=== PATIENT | male | born 1980 | race Caucasian/White ===

== ENCOUNTER 2017-10-04 18:21 | Inpatient (IN) | payer BC ==
[2017-10-04] MEDS ORDERED: Sodium Chloride 0.9% 1,000 ML IV SCH ×2 (19:30→22:30)
--- NOTE | 2017-10-04 19:30 | EDM.PDOC ---
ED HPI GENERAL MEDICAL PROBLEM - General Chief Complaint: Fever Stated Complaint: FEVER POST SURGERY Time Seen by Provider: 10/04/17 18:58 Source of Information: Reports: Patient History Limitations: Reports: No Limitations - History of Present Illness INITIAL COMMENTS - FREE TEXT/NARRATIVE: This is a 37-year-old male. Yesterday he had an appendectomy at the [facility] by Dr. Kang. Apparently the procedure went without a problem and he was sent home. He noted around 3 or 4 PM today that he began to have some chills and was noted to have fever up to 104. [facility] and they told him to come to the ER for evaluation. He tells me the appendix was not ruptured when they took it out. He did also have some chills last night after the procedure when he was home. He has been drinking fluids but has not had a bowel movement yet he's had no nausea and vomiting and he denies any abdominal pain. He does have a sore throat and he does have a dry hacking cough. He denies any skin lesions or any other areas that might cause infection. - Related Data Allergies Allergy/AdvReac Type Severity Reaction Status Date / Time No Known Allergies Allergy Verified 10/04/17 18:36 Home Meds: Home Meds Acetaminophen/oxyCODONE [Percocet 325-5 MG] 1 each PO Q4HR PRN 10/04/17 [History ] Amoxicillin/Clavulanate K [Augmentin 875-125 MG] 1 tab PO BID 10/04/17 [History] Past Medical History - Past Surgical History GI Surgical History: Reports: Appendectomy Social & Family History - Tobacco Use Smoking Status *Q: Never Smoker - Caffeine Use Caffeine Use: Reports: Soda - Recreational Drug Use Recreational Drug Use: No ED ROS GENERAL - Review of Systems Review Of Systems: See Below Constitutional: Reports: Fever, Chills, Malaise HEENT: Reports: Throat Pain. Denies: Rhinitis, Sinus Problem Respiratory: Reports: Cough. Denies: Shortness of Breath, Wheezing Cardiovascular: Denies: Chest Pain Endocrine: Reports: No Symptoms GI/Abdominal: Reports: Other (He has not had a bowel movement since the procedure). Denies: Abdominal Pain, Diarrhea, Nausea, Vomiting : Reports: No Symptoms Musculoskeletal: Reports: No Symptoms Skin: Reports: No Symptoms Neurological: Reports: No Symptoms Psychiatric: Reports: No Symptoms Hematologic/Lymphatic: Reports: No Symptoms ED EXAM, SEPSIS - Physical Exam Exam: See Below Exam Limited By: No Limitations General Appearance: Alert, WD/WN, No Apparent Distress Eye Exam: Bilateral Eye: Normal Inspection Ears: Normal External Exam, Normal Canal, Normal TMs Nose: Normal Inspection Throat/Mouth: Normal Inspection, Normal Lips, Normal Voice, No Airway Compromise , Other (Minimally inflamed oropharynx, he has dry mucous membranes noted) Head: Normocephalic Neck: Supple, Other (No nuchal rigidity) Respiratory/Chest: No Respiratory Distress, Lungs Clear, Normal Breath Sounds, Other (Lungs appear to be clear and the posterior mcallister and the bases though there are some decreased breath sounds in the bases noted bilaterally) Cardiovascular: Regular Rate, Rhythm, No Murmur GI/Abdominal Exam: Non-Tender, Distended, Other (There are no bowel sounds noted on auscultation of all 4 quadrants. He does not have any significant tenderness on palpation of his 4 quadrants, some mild soreness in McBurney's point in the right lower quadrant but no rebound is noted). No: Soft Back: Full Range of Motion Extremities: Normal Inspection, Normal Range of Motion Neurological: Alert, Oriented Psychiatric: Normal Affect, Normal Mood Skin: Warm, Dry Course - Vital Signs Last Recorded V/S: Last Vital Signs Temp 103.2 F H 10/04/17 18:38 Pulse 115 H 10/04/17 18:38 Resp 18 10/04/17 18:38 BP 126/72 10/04/17 18:38 Pulse Ox 90 L 10/04/17 18:38 - Orders/Labs/Meds Orders: Active Orders 24 hr Category Date Time Status Abdomen Pelvis w Cont [CT] Stat Exams 10/04/17 19:14 Taken Chest 2V [CR] Stat Exams 10/04/17 19:12 Taken CULTURE BLOOD [BC] Stat Lab 10/04/17 19:05 Received CULTURE BLOOD [BC] Stat Lab 10/04/17 19:17 Received CULTURE STREP A CONFIRMATION [RM] Stat Lab 10/04/17 19:38 Results Rapid Strep w/culture conf [STREP SCRN A RAPID W CULT Lab 10/04/17 19:38 Results CONF] [RM] Stat Sodium Chloride 0.9% [Normal Saline] 1,000 ml Med 10/04/17 19:30 Active IV ASDIRECTED cefTRIAXone [Rocephin] 1 gm Med 10/04/17 21:36 Active Sodium Chloride 0.9% [Normal Saline] 100 ml IV ONETIME Blood Culture x2 Reflex Set [OM.PC] Stat Oth 10/04/17 19:13 Ordered Medication Orders Sodium Chloride (Normal Saline) 1,000 mls @ 1,000 mls/hr IV ASDIRECTED GONSALO Last Admin: 10/04/17 19:37 Dose: 1,000 mls/hr Ceftriaxone Sodium 1 gm/ (Sodium Chloride) 100 mls @ 200 mls/hr IV ONETIME ONE Stop: 10/04/17 22:05 Last Admin: 10/04/17 21:44 Dose: 200 mls/hr Labs: Laboratory Tests 10/04/17 10/04/17 10/04/17 Range/Units 19:05 19:05 19:05 WBC 11.10 H (4.23-9.07) K/mm3 RBC 4.93 (4.63-6.08) M/mm3 Hgb 14.5 (13.7-17.5) gm/L Hct 42.0 (40.1-51.0) % MCV 85.2 (79.0-92.2) fl MCH 29.4 (25.7-32.2) pg MCHC 34.5 (32.2-35.5) g/dl RDW Std Deviation 38.6 (35.1-43.9) fL Plt Count 173 (163-337) K/mm3 MPV 11.6 (9.4-12.3) fl Neut % (Auto) 72.1 H (34.0-67.9) % Lymph % (Auto) 16.0 L (21.8-53.1) % [place] % (Auto) 10.8 (5.3-12.2) % Eos % (Auto) 0.5 L (0.8-7.0) Baso % (Auto) 0.3 (0.1-1.2) % Neut # (Auto) 8.00 H (1.78-5.38) K/mm3 Lymph # (Auto) 1.78 (1.32-3.57) K/mm3 [place] # (Auto) 1.20 H (0.30-0.82) K/mm3 Eos # (Auto) 0.06 (0.04-0.54) K/mm3 Baso # (Auto) 0.03 (0.01-0.08) K/mm3 Sodium 139 (136-145) mEq/L Potassium 3.6 (3.5-5.1) mEq/L Chloride 103 (98-107) mEq/L Carbon Dioxide 25 (21-32) mEq/L Anion Gap 14.6 (5-15) BUN 13 (7-18) mg/dL Creatinine 1.4 H (0.7-1.3) mg/dL Est Cr Clr Drug Dosing 68.85 mL/min Estimated GFR (MDRD) 58 (>60) mL/min BUN/Creatinine Ratio 9.3 L (14-18) Glucose 99 (74-106) mg/dL Lactic Acid 1.0 (0.4-2.0) mmol/L Calcium 8.4 L (8.5-10.1) mg/dL Total Bilirubin 0.8 (0.2-1.0) mg/dL AST 25 (15-37) U/L ALT 55 (16-63) U/L Alkaline Phosphatase 49 (46-116) U/L C-Reactive Protein 7.0 H* (<1.0) mg/dL Total Protein 7.1 (6.4-8.2) g/dl Albumin 3.5 (3.4-5.0) g/dl Globulin 3.6 gm/dL Albumin/Globulin Ratio 1.0 (1-2) Urine Color (Yellow) Urine Appearance (Clear) Urine pH (5.0-8.0) Ur Specific [place] (1.005-1.030) Urine Protein (Negative) Urine Glucose (UA) (Negative) Urine Ketones (Negative) Urine Occult Blood (Negative) Urine Nitrite (Negative) Urine Bilirubin (Negative) Urine Urobilinogen (0.2-1.0) Ur Leukocyte Esterase (Negative) Urine RBC (0-5) /hpf Urine WBC (0-5) /hpf Ur Epithelial Cells (0-5) /hpf Urine Bacteria (FEW) /hpf Urine Mucus (FEW) /hpf 10/04/17 Range/Units 19:34 WBC (4.23-9.07) K/mm3 RBC (4.63-6.08) M/mm3 Hgb (13.7-17.5) gm/L Hct (40.1-51.0) % MCV (79.0-92.2) fl MCH (25.7-32.2) pg MCHC (32.2-35.5) g/dl RDW Std Deviation (35.1-43.9) fL Plt Count (163-337) K/mm3 MPV (9.4-12.3) fl Neut % (Auto) (34.0-67.9) % Lymph % (Auto) (21.8-53.1) % [place] % (Auto) (5.3-12.2) % Eos % (Auto) (0.8-7.0) Baso % (Auto) (0.1-1.2) % Neut # (Auto) (1.78-5.38) K/mm3 Lymph # (Auto) (1.32-3.57) K/mm3 [place] # (Auto) (0.30-0.82) K/mm3 Eos # (Auto) (0.04-0.54) K/mm3 Baso # (Auto) (0.01-0.08) K/mm3 Sodium (136-145) mEq/L Potassium (3.5-5.1) mEq/L Chloride (98-107) mEq/L Carbon Dioxide (21-32) mEq/L Anion Gap (5-15) BUN (7-18) mg/dL Creatinine (0.7-1.3) mg/dL Est Cr Clr Drug Dosing mL/min Estimated GFR (MDRD) (>60) mL/min BUN/Creatinine Ratio (14-18) Glucose (74-106) mg/dL Lactic Acid (0.4-2.0) mmol/L Calcium (8.5-10.1) mg/dL Total Bilirubin (0.2-1.0) mg/dL AST (15-37) U/L ALT (16-63) U/L Alkaline Phosphatase (46-116) U/L C-Reactive Protein (<1.0) mg/dL Total Protein (6.4-8.2) g/dl Albumin (3.4-5.0) g/dl Globulin gm/dL Albumin/Globulin Ratio (1-2) Urine Color Yellow (Yellow) Urine Appearance Clear (Clear) Urine pH 6.0 (5.0-8.0) Ur Specific [place] 1.020 (1.005-1.030) Urine Protein Negative (Negative) Urine Glucose (UA) Negative (Negative) Urine Ketones Negative (Negative) Urine Occult Blood Negative (Negative) Urine Nitrite Negative (Negative) Urine Bilirubin Negative (Negative) Urine Urobilinogen 0.2 (0.2-1.0) Ur Leukocyte Esterase Negative (Negative) Urine RBC 0-5 (0-5) /hpf Urine WBC 0-5 (0-5) /hpf Ur Epithelial Cells 0-5 (0-5) /hpf Urine Bacteria Rare (FEW) /hpf Urine Mucus Not seen (FEW) /hpf Meds: Medications Generic Name Dose Route Start Last Admin Trade Name Freq PRN Reason Stop Dose Admin Sodium Chloride 1,000 mls @ 1,000 mls/hr 10/04/17 19:30 10/04/17 19:37 Normal Saline IV 1,000 mls/hr ASDIRECTED GONSALO Administration Ceftriaxone Sodium 1 gm/ 100 mls @ 200 mls/hr 10/04/17 21:36 10/04/17 21:44 Sodium Chloride IV 10/04/17 22:05 200 mls/hr ONETIME ONE Administration Discontinued Medications Generic Name Dose Route Start Last Admin Trade Name Freq PRN Reason Stop Dose Admin Iopamidol 125 ml 10/04/17 19:50 10/04/17 20:04 Isovue-300 (61%) IVPUSH 10/04/17 19:51 125 ml ONETIME ONE Administration Sodium Chloride 10 ml 10/04/17 19:50 10/04/17 20:05 Saline Flush FLUSH 10/04/17 19:51 10 ml ONETIME ONE Administration - Radiology Interpretation Free Text/Narrative:: CT scan of the abdomen and pelvis with intravenous contrast shows a consolidated right lower lobe pneumonia and a small amount in the left lower lobe as well with a right pleural effusion this very small. - Re-Assessments/Exams Free Text/Narrative Re-Assessment/Exam: 10/04/17 22:[address] Knowles and he is willing to follow the patient for postoperative care for his percutaneous appendectomy. 10/04/17 22:[address] Bermudez and she will put the patient in the hospital for further evaluation and treatment. Departure - Departure Time of Disposition: 22:07 Disposition: Admitted As Inpatient 68 Condition: Fair Clinical Impression: Status post appendectomy Pneumonia Qualifiers: Pneumonia type: due to unspecified organism Laterality: bilateral Lung location : lower lobe of lung Qualified Code(s): J18.9 - Pneumonia, unspecified organism - Discharge Information Additional Instructions: Dr. Bermudez will place the patient in the hospital for further evaluation and treatment. ED Communication - ED Communication Date/Time Date: 10/04/17 Time Called: 22:19 - Discussed Case With (1) Discussed Case With (1): Admitting Provider Person/s Notified (1): Ina Bermudez (She will admit the patient) - My Orders Last 24 Hours: My Active Orders 10/04/17 19:05 CULTURE BLOOD [BC] Stat 10/04/17 19:12 Chest 2V [CR] Stat 10/04/17 19:13 Blood Culture x2 Reflex Set [OM.PC] Stat 10/04/17 19:14 Abdomen Pelvis w Cont [CT] Stat 10/04/17 19:17 CULTURE BLOOD [BC] Stat 10/04/17 19:30 Sodium Chloride 0.9% [Normal Saline] 1,000 ml IV ASDIRECTED 10/04/17 19:38 CULTURE STREP A CONFIRMATION [RM] Stat Rapid Strep w/culture conf [STREP SCRN A RAPID W CULT CONF] [RM] Stat 10/04/17 21:36 cefTRIAXone [Rocephin] 1 gm Sodium Chloride 0.9% [Normal Saline] 100 ml IV ONETIME - Assessment/Plan Last 24 Hours: My Active Orders 10/04/17 19:05 CULTURE BLOOD [BC] Stat 10/04/17 19:12 Chest 2V [CR] Stat 10/04/17 19:13 Blood Culture x2 Reflex Set [OM.PC] Stat 10/04/17 19:14 Abdomen Pelvis w Cont [CT] Stat 10/04/17 19:17 CULTURE BLOOD [BC] Stat 10/04/17 19:30 Sodium Chloride 0.9% [Normal Saline] 1,000 ml IV ASDIRECTED 10/04/17 19:38 CULTURE STREP A CONFIRMATION [RM] Stat Rapid Strep w/culture conf [STREP SCRN A RAPID W CULT CONF] [RM] Stat 10/04/17 21:36 cefTRIAXone [Rocephin] 1 gm Sodium Chloride 0.9% [Normal Saline] 100 ml IV ONETIME
[2017-10-04] MEDS ORDERED: Iopamidol 612 MG/ML 150 ML Bottle IVPUSH ONE (19:50)
[2017-10-04] MEDS ORDERED: Sodium Chloride 0.9% 10 ML Syringe FLUSH ONE (19:50)
[2017-10-04] MEDS ORDERED: cefTRIAXone 1 GM in Sodium Chloride 0.9% 100 ML IV ONE (21:36)
[2017-10-04] MEDS ORDERED: Levofloxacin/Dextrose 5%-Water 750 MG in Premix Bag 1 BAG IV ONE (22:13)
[2017-10-04] MEDS ORDERED: Acetaminophen/HYDROcodone 325-5 MG Tab PO PRN (23:37)
[2017-10-04] MEDS ORDERED: Morphine 2 MG/ML Syringe IVPUSH PRN (23:39)
[2017-10-04] MEDS ORDERED: Ondansetron 4 MG/2 ML SDV IVPUSH PRN (23:40)
[2017-10-04] MEDS ORDERED: Temazepam 15 MG Cap PO PRN (23:45)
[2017-10-05] MEDS ORDERED: Sodium Chloride 0.9% 500 ML IV ONE (00:01)
[2017-10-05] MEDS: Sodium Chloride 0.9% 1,000 ML IV SCH ×4 (02:08→23:46)
--- NOTE | 2017-10-05 09:02 | PCM.CONS ---
H&P History of Present Illness - General Date of Service: 10/05/17 Admit Problem/Dx: Admission Diagnosis/Problem Admission Diagnosis/Problem Pneumonia Source of Information: Patient - History of Present Illness Initial Comments - Free Text/Narative: 37-year-old male is 2 days status post a laparoscopic appendectomy for acute appendicitis. He was discharged after satisfying discharge criteria only to become short of breath and experiencing severe dyspnea on exertion. This was associated with a temperature 103. Out of concern he presented to the emergency room and was evaluated by staff. A Chest x-ray was remarkable for a right-sided pneumonia. His abdominal CT was remarkable for postoperative changes. He feels much better from the laparoscopic appendectomy noting only minimal incisional discomfort but no abdominal pain specifically being able to distinguish between his appendicitis discomfort and the surgical discomfort stating that the latter is much much better. His preop nausea and emesis have resolved. He has passed a lot of gas but has not had a bowel movement. This morning he has mild shortness of breath. Overnight his temperature has normalized with current management and his white count is slightly above 10, 000. I was asked to see him in consultation. - Related Data Allergies/Adverse Reactions: Allergies Allergy/AdvReac Type Severity Reaction Status Date / Time No Known Allergies Allergy Verified 10/05/17 00:10 Home Medications: Home Meds Acetaminophen/oxyCODONE [Percocet 325-5 MG] 1 each PO Q4HR PRN 10/04/17 [History ] Amoxicillin/Clavulanate K [Augmentin 875-125 MG] 1 tab PO BID 10/04/17 [History] Past Medical History - Past Surgical History GI Surgical History: Reports: Appendectomy Other GI Surgeries/Procedures: 10/02/17 lap appy Social & Family History - Family History Family Medical History: Noncontributory - Tobacco Use Smoking Status *Q: Never Smoker Second Hand Smoke Exposure: No - Caffeine Use Caffeine Use: Reports: Soda Other Caffeine Use: 1-2 can [place] dew per day - Recreational Drug Use Recreational Drug Use: No H&P Review of Systems - Review of Systems: Review Of Systems: ROS reveals no pertinent complaints other than HPI. Exam - Exam Exam: See Below - Vital Signs Vital Signs: Last Vital Signs Temp 36.7 C 10/05/17 08:21 Pulse 75 10/05/17 08:21 Resp 16 10/05/17 08:21 BP 128/75 10/05/17 08:21 Pulse Ox 95 10/05/17 08:21 Weight: 103.328 kg - Exam General: Alert, Oriented, Cooperative, Other (Obese) HEENT: EOMI, Hearing Intact Neck: Supple, Trachea Midline Lungs: Decreased Breath Sounds (In the right chest and right base) Cardiovascular: Regular Rate, Regular Rhythm, Normal S1, Normal S2 GI/Abdominal Exam: Soft, Non-Tender (Male) Exam: Deferred Rectal (Males) Exam: Deferred Back Exam: Full Range of Motion Extremities: Normal Inspection, Normal Range of Motion Skin: Warm, Dry, Intact Psychiatric: Alert, Normal Affect, Normal Mood - Patient Data Lab Results Last 24 hrs: Laboratory Results - last 24 hr 10/05/17 10/05/17 10/05/17 Range/Units 05:37 05:37 05:37 WBC 10.04 H (4.23-9.07) K/mm3 RBC 4.84 (4.63-6.08) M/mm3 Hgb 14.2 (13.7-17.5) gm/L Hct 41.2 (40.1-51.0) % MCV 85.1 (79.0-92.2) fl MCH 29.3 (25.7-32.2) pg MCHC 34.5 (32.2-35.5) g/dl RDW Std Deviation 38.4 (35.1-43.9) fL Plt Count 160 L (163-337) K/mm3 MPV 11.6 (9.4-12.3) fl Neut % (Auto) 62.3 (34.0-67.9) % Lymph % (Auto) 24.4 (21.8-53.1) % [place] % (Auto) 11.7 (5.3-12.2) % Eos % (Auto) 1.0 (0.8-7.0) Baso % (Auto) 0.2 (0.1-1.2) % Neut # (Auto) 6.26 H (1.78-5.38) K/mm3 Lymph # (Auto) 2.45 (1.32-3.57) K/mm3 [place] # (Auto) 1.17 H (0.30-0.82) K/mm3 Eos # (Auto) 0.10 (0.04-0.54) K/mm3 Baso # (Auto) 0.02 (0.01-0.08) K/mm3 Sodium 140 (136-145) mEq/L Potassium 3.7 (3.5-5.1) mEq/L Chloride 106 (98-107) mEq/L Carbon Dioxide 24 (21-32) mEq/L Anion Gap 13.7 (5-15) BUN 13 (7-18) mg/dL Creatinine 1.2 (0.7-1.3) mg/dL Est Cr Clr Drug Dosing 80.33 mL/min Estimated GFR (MDRD) > 60 (>60) mL/min BUN/Creatinine Ratio 10.8 L (14-18) Glucose 90 (74-106) mg/dL Lactic Acid 0.8 (0.4-2.0) mmol/L Calcium 8.2 L (8.5-10.1) mg/dL Magnesium 2.1 (1.8-2.4) mg/dl C-Reactive Protein 8.4 H* (<1.0) mg/dL Result Diagrams: 10/05/17 05:37 10/05/17 05:37 Nazario Results Last 24 hrs: Microbiology 10/04/17 23:14 Influenza Type A Antigen Screen - Final Nasopharyngeal Swab - Nare, Unspecified NEGATIVE INFLUENZA A VIRUS AG Influenza Type B Antigen Screen - Final NEGATIVE INFLUENZA B VIRUS AG Consult PN Assessment/Plan (1) Pneumonia SNOMED Code(s): 436133571 Code(s): J18.9 - PNEUMONIA, UNSPECIFIED ORGANISM Current Visit: Yes Qualifiers: Pneumonia type: due to unspecified organism Laterality: bilateral Lung location: lower lobe of lung Qualified Code(s): J18.9 - Pneumonia, unspecified organism (2) Status post appendectomy SNOMED Code(s): 389418373, 220652623 Code(s): Z90.49 - ACQUIRED ABSENCE OF OTHER SPECIFIED PARTS OF DIGESTIVE TRACT Current Visit: Yes Problem List Initiated/Reviewed/Updated: Yes Plan: Imp: With no history of cigarette smoking and no history of pulmonary disease and given his obesity along with the nausea and multiple episodes of emesis that he had before his appendectomy I suspect that he aspirated at some point during the intubation, the surgical procedure, or extubation required for his appendectomy. This blossomed after discharge and manifested as shortness of breath, an elevation in temperature, and the radiographic findings. His abdomen is benign. His constipation is related to a mild postoperative large bowel ileus. Rec: Medical management of the pneumonia. Regular diet. Laxatives.
--- NOTE | 2017-10-05 09:19 | PCM.HP ---
H&P History of Present Illness - General Date of Service: 10/05/17 Source of Information: Provider History Limitations: Reports: No Limitations - History of Present Illness Initial Comments - Free Text/Narative: 37 year old male without significant PMH is s/p appendectomy, POD 1. He went home after the OP procedure and developed a fever with chills. He noted a sore throat post extubation. This was associated with a fever on the day that he was discharged. He notified the [facility] and was instructed to go to the ED in his home town. Thus he presented to [facility] ED, he has a RLL infiltarte. he will be admitted to [place] oc for aspiration PNA. A general surg consult has been ordered. Onset of Symptoms: Reports: Gradual Symptom Onset Date: 10/03/17 Duration of Symptoms: Reports: Hour(s):, Getting Worse Location: Reports: Chest, Generalized Severity: Moderate Improves with: Reports: Medication Worsens with: Reports: None Associated Symptoms: Reports: Chest Pain, cough w sputum, Fever/Chills, Loss of Appetite, Malaise, Nausea/Vomiting, Shortness of Breath, Weakness - Related Data Allergies/Adverse Reactions: Allergies Allergy/AdvReac Type Severity Reaction Status Date / Time No Known Allergies Allergy Verified 10/05/17 00:10 Home Medications: Home Meds Acetaminophen/oxyCODONE [Percocet 325-5 MG] 1 each PO Q4HR PRN 10/04/17 [History ] Amoxicillin/Clavulanate K [Augmentin 875-125 MG] 1 tab PO BID 10/04/17 [History] Past Medical History - Past Surgical History GI Surgical History: Reports: Appendectomy Other GI Surgeries/Procedures: 10/02/17 [facility] Social & Family History - Family History Family Medical History: Noncontributory - Tobacco Use Smoking Status *Q: Never Smoker Second Hand Smoke Exposure: No - Caffeine Use Caffeine Use: Reports: Soda Other Caffeine Use: 1-2 can moutain dew per day - Recreational Drug Use Recreational Drug Use: No H&P Review of Systems - Review of Systems: Review Of Systems: See Below General: Reports: Fever, Chills, Malaise, Weakness, Fatigue, Decreased Appetite HEENT: Reports: Sore Throat Pulmonary: Reports: Pleuritic Chest Pain Cardiovascular: Reports: No Symptoms Gastrointestinal: Reports: No Symptoms Genitourinary: Reports: No Symptoms Musculoskeletal: Reports: No Symptoms Skin: Reports: No Symptoms Psychiatric: Reports: No Symptoms Neurological: Reports: No Symptoms Hematologic/Lymphatic: Reports: No Symptoms Immunologic: Reports: No Symptoms Exam - Exam Exam: See Below - Vital Signs Vital Signs: Last Vital Signs Temp 36.7 C 10/05/17 08:21 Pulse 75 10/05/17 08:21 Resp 16 10/05/17 08:21 BP 128/75 10/05/17 08:21 Pulse Ox 95 10/05/17 08:21 Weight: 103.328 kg - Exam Quality Assessment: Supplemental Oxygen, DVT Prophylaxis General: Alert, Oriented, Cooperative HEENT: Conjunctiva Clear, Nares Patent, Normal Nasal Septum, Pupils Equal, Pupils Reactive, PERRLA Neck: Supple, Trachea Midline Lungs: Normal Respiratory Effort, Decreased Breath Sounds (R>L) Cardiovascular: Regular Rate, Regular Rhythm GI/Abdominal Exam: Non-Tender, No Distention, Guarding (no), Rigid (no), Rebound (no), Abnormal Bowel Sounds (Male) Exam: Deferred Rectal (Males) Exam: Deferred Back Exam: Normal Inspection Extremities: Normal Inspection Skin: Warm, Dry, Intact Neurological: Cranial Nerves Intact Neuro Extensive - Mental Status: Alert, Oriented x3, Normal Mood/Affect, Normal Cognition, Memory Intact - Patient Data Lab Results Last 24 hrs: Laboratory Results - last 24 hr 10/05/17 10/05/17 10/05/17 Range/Units 05:37 05:37 05:37 WBC 10.04 H (4.23-9.07) K/mm3 RBC 4.84 (4.63-6.08) M/mm3 Hgb 14.2 (13.7-17.5) gm/L Hct 41.2 (40.1-51.0) % MCV 85.1 (79.0-92.2) fl MCH 29.3 (25.7-32.2) pg MCHC 34.5 (32.2-35.5) g/dl RDW Std Deviation 38.4 (35.1-43.9) fL Plt Count 160 L (163-337) K/mm3 MPV 11.6 (9.4-12.3) fl Neut % (Auto) 62.3 (34.0-67.9) % Lymph % (Auto) 24.4 (21.8-53.1) % [place] % (Auto) 11.7 (5.3-12.2) % Eos % (Auto) 1.0 (0.8-7.0) Baso % (Auto) 0.2 (0.1-1.2) % Neut # (Auto) 6.26 H (1.78-5.38) K/mm3 Lymph # (Auto) 2.45 (1.32-3.57) K/mm3 [place] # (Auto) 1.17 H (0.30-0.82) K/mm3 Eos # (Auto) 0.10 (0.04-0.54) K/mm3 Baso # (Auto) 0.02 (0.01-0.08) K/mm3 Sodium 140 (136-145) mEq/L Potassium 3.7 (3.5-5.1) mEq/L Chloride 106 (98-107) mEq/L Carbon Dioxide 24 (21-32) mEq/L Anion Gap 13.7 (5-15) BUN 13 (7-18) mg/dL Creatinine 1.2 (0.7-1.3) mg/dL Est Cr Clr Drug Dosing 80.33 mL/min Estimated GFR (MDRD) > 60 (>60) mL/min BUN/Creatinine Ratio 10.8 L (14-18) Glucose 90 (74-106) mg/dL Lactic Acid 0.8 (0.4-2.0) mmol/L Calcium 8.2 L (8.5-10.1) mg/dL Magnesium 2.1 (1.8-2.4) mg/dl C-Reactive Protein 8.4 H* (<1.0) mg/dL Result Diagrams: 10/06/17 10:58 10/06/17 10:58 Nazario Results Last 24 hrs: Microbiology 10/04/17 23:14 Influenza Type A Antigen Screen - Final Nasopharyngeal Swab - Nare, Unspecified NEGATIVE INFLUENZA A VIRUS AG Influenza Type B Antigen Screen - Final NEGATIVE INFLUENZA B VIRUS AG *Q Meaningful Use (ADM) - VTE *Q VTE Criteria *Q: - Stroke *Q Stroke Criteria *Q: - AMI *Q AMI Criteria *Q: - Problem List (1) Obesity (BMI 30-39.9) SNOMED Code(s): 571946030 ICD Code: E66.9 - OBESITY, UNSPECIFIED Status: Acute Current Visit: Yes (2) Pneumonia SNOMED Code(s): 908944173 ICD Code: J18.9 - PNEUMONIA, UNSPECIFIED ORGANISM Status: Acute Current Visit: Yes Qualifiers: Pneumonia type: due to unspecified organism Laterality: bilateral Lung location: lower lobe of lung Qualified Code(s): J18.9 - Pneumonia, unspecified organism (3) Status post appendectomy SNOMED Code(s): 606809724, 210556841 ICD Code: Z90.49 - ACQUIRED ABSENCE OF OTHER SPECIFIED PARTS OF DIGESTIVE TRACT Status: Acute Current Visit: Yes Problem List Initiated/Reviewed/Updated: Yes Orders Last 24hrs: Active Orders 24 hr Category Date Time Status Patient Status [ADT] Routine ADT 10/04/17 23:30 Active Activity as Tolerated [RC] .Routine Care 10/05/17 01:08 Active Communication Order [RC] ROUTINE Care 10/04/17 23:42 Active IS (RT) [RT Incentive Spirometry] [RC] ASDIRECTED Care 10/05/17 09:09 Active Notify Provider Consults [RC] ASDIRECTED Care 10/04/17 23:27 Active Oxygen Therapy Adult [Oxygen Therapy] [RC] ASDIRECTED Care 10/05/17 01:00 Active Consult to Physician [CONS] Routine Cons 10/04/17 23:26 Active Clear Liquid Diet [DIET] Diet 10/05/17 Breakfast Active Chest 2V [CR] Routine Exams 10/04/17 23:34 Stop Req Chest 2V [CR] Routine Exams 10/05/17 08:00 Ordered Acetaminophen/HYDROcodone [[place] 325-5 MG] Med 10/04/17 23:37 Active 1 tab PO Q6H PRN Enoxaparin [Lovenox] Med 10/05/17 09:00 Pending 30 mg SUBCUT DAILY Morphine Med 10/04/17 23:39 Active 1 mg IVPUSH Q8H PRN Ondansetron [Zofran] Med 10/04/17 23:40 Active 4 mg IVPUSH Q8H PRN Sodium Chloride 0.9% [Normal Saline] 1,000 ml Med 10/05/17 00:30 Active IV ASDIRECTED Temazepam [Restoril] Med 10/04/17 23:45 Active 15 mg PO BEDTIME PRN Isolation [COMM] Routine Oth 10/04/17 23:25 Ordered Code Status [Resuscitation Status] Routine Resus Stat 10/05/17 00:26 Ordered Medication Orders Hydrocodone Bitart/Acetaminophen ([place] 325-5 Mg) 1 tab PO Q6H PRN PRN Reason: Pain Enoxaparin Sodium (Lovenox) 30 mg SUBCUT DAILY [facility] Sodium Chloride (Normal Saline) 1,000 mls @ 150 mls/hr IV ASDIRECTED [facility] Last Admin: 10/05/17 02:08 Dose: 150 mls/hr Morphine Sulfate (Morphine) 1 mg IVPUSH Q8H PRN PRN Reason: Pain Ondansetron HCl (Zofran) 4 mg IVPUSH Q8H PRN PRN Reason: Nausea Temazepam (Restoril) 15 mg PO BEDTIME PRN PRN Reason: Sleep Assessment/Plan Comment:: Impression: POD 1, s/p appendectomy Had been provided an Augmentin prescription Aspiration PNA, RLL infiltrate Plan: IV ATB IVF IV Antiemetic Gen surg consult Daily labs Home meds DVT/GI prophylaxis Consult PT/OT/CM
[2017-10-05] MEDS ORDERED: Piperacillin/Tazobactam 4.5 GM in Sodium Chloride 0.9% 100 ML IV ONE (09:30)
[2017-10-05] MEDS: Ketorolac 15 MG/ML SDV IVPUSH SCH ×2 (09:48→16:42)
--- NOTE | 2017-10-05 10:50 | CR ---
Chest: 2 views of the chest are obtained. Comparison: Prior chest x-ray 10/14/17. Heart size and mediastinum are normal. Parenchymal density is noted within the right upper lung presumably due to persisting pneumonia although continued follow-up is recommended. Slight areas of atelectasis are seen within both lungs. Bony structures are unremarkable for the patient's age. Impression: 1. Parenchymal density most likely due to pneumonia within the upper right lung. Continued follow-up is recommended to make sure this resolves as expected for pneumonia. 2. Mild scattered areas of atelectasis is seen. Diagnostic code #3
[2017-10-05] MEDS ORDERED: Sennosides 8.6 MG Tab PO SCH (11:30)
[2017-10-05] MEDS: Enoxaparin 40 MG/0.4 ML Syringe SUBCUT SCH (11:56)
[2017-10-05] MEDS: Piperacillin/Tazobactam 4.5 GM in Sodium Chloride 0.9% 100 ML IV SCH (16:47)
[2017-10-05] MEDS ORDERED: Bisacodyl 5 MG Tab PO PRN (19:15)
[2017-10-05] MEDS: Levofloxacin/Dextrose 5%-Water 750 MG in Premix Bag 1 BAG IV SCH (21:37)
[2017-10-06] MEDS ORDERED: Sodium Chloride 0.9% 100 ML ONE (01:31)
[2017-10-06] MEDS: Piperacillin/Tazobactam 4.5 GM in Sodium Chloride 0.9% 100 ML IV SCH ×3 (01:37→17:17)
[2017-10-06] MEDS: Ketorolac 15 MG/ML SDV IVPUSH SCH ×2 (01:39→08:42)
[2017-10-06] MEDS: Sodium Chloride 0.9% 1,000 ML IV SCH (06:37)
[2017-10-06] MEDS: Enoxaparin 40 MG/0.4 ML Syringe SUBCUT SCH (08:39)
--- NOTE | 2017-10-06 08:48 | PCM.CONSN ---
- General Info Date of Service: 10/06/17 Functional Status: Reports: Pain Controlled, Tolerating Diet, Ambulating, Urinating - Review of Systems Gastrointestinal: Reports: No Symptoms, Other (2 bowel movements with gas passage) - Patient Data Vitals - Most Recent: Last Vital Signs Temp 36.8 C 10/06/17 07:55 Pulse 57 L 10/06/17 07:55 Resp 16 10/06/17 07:55 BP 125/78 10/06/17 07:55 Pulse Ox 99 10/06/17 07:55 Weight - Most Recent: 103.963 kg I&O - Last 24 Hours: Intake & Output 10/05/17 10/06/17 10/06/17 22:59 06:59 14:59 Intake Total 2450 2748 Output Total 1520 1175 Balance 930 1573 Med Orders - Current: Current Medications Hydrocodone Bitart/Acetaminophen ([place] 325-5 Mg) 1 tab PO Q6H PRN PRN Reason: Pain Bisacodyl (Dulcolax) 5 mg PO BEDTIME PRN PRN Reason: Constipation Enoxaparin Sodium (Lovenox) 40 mg SUBCUT DAILY [facility] Last Admin: 10/06/17 08:39 Dose: 40 mg Sodium Chloride (Normal Saline) 1,000 mls @ 150 mls/hr IV ASDIRECTED [facility] Last Admin: 10/06/17 06:37 Dose: 150 mls/hr Levofloxacin/Dextrose 750 mg/ (Premix) 150 mls @ 100 mls/hr IV Q24H [facility] Last Admin: 10/05/17 21:37 Dose: 100 mls/hr Piperacillin Sod/Tazobactam (Sod 4.5 gm/ Sodium Chloride) 100 mls @ 25 mls/hr IV Q8H [facility] Last Admin: 10/06/17 08:42 Dose: 25 mls/hr Ketorolac Tromethamine (Toradol) 15 mg IVPUSH Q8H [facility] Stop: 10/06/17 09:31 Last Admin: 10/06/17 08:42 Dose: Not Given Morphine Sulfate (Morphine) 1 mg IVPUSH Q8H PRN PRN Reason: Pain Ondansetron HCl (Zofran) 4 mg IVPUSH Q8H PRN PRN Reason: Nausea Temazepam (Restoril) 15 mg PO BEDTIME PRN PRN Reason: Sleep Discontinued Medications Sodium Chloride (Normal Saline) 1,000 mls @ 1,000 mls/hr IV ASDIRECTED [facility] Last Admin: 10/04/17 19:37 Dose: 1,000 mls/hr Ceftriaxone Sodium 1 gm/ (Sodium Chloride) 100 mls @ 200 mls/hr IV ONETIME ONE Stop: 10/04/17 22:05 Last Admin: 10/04/17 21:44 Dose: 200 mls/hr Levofloxacin/Dextrose 750 mg/ (Premix) 150 mls @ 100 mls/hr IV ONETIME ONE Stop: 10/04/17 23:42 Last Admin: 10/04/17 22:27 Dose: 100 mls/hr Sodium Chloride (Normal Saline) 1,000 mls @ 500 mls/hr IV ASDIRECTED [facility] Last Admin: 10/04/17 22:26 Dose: 500 mls/hr Sodium Chloride (Normal Saline) 500 mls @ 999 mls/hr IV .BOLUS ONE Stop: 10/05/17 00:31 Last Admin: 10/04/17 23:30 Dose: 999 mls/hr Piperacillin Sod/Tazobactam (Sod 4.5 gm/ Sodium Chloride) 100 mls @ 200 mls/hr IV ONETIME ONE Stop: 10/05/17 09:59 Last Admin: 10/05/17 09:51 Dose: 200 mls/hr Sodium Chloride (Normal Saline) Confirm Administered Dose 100 mls @ as directed .ROUTE .STK-MED ONE Stop: 10/06/17 01:32 Last Admin: 10/06/17 01:39 Dose: Not Given Iopamidol (Isovue-300 (61%)) 125 ml IVPUSH ONETIME ONE Stop: 10/04/17 19:51 Last Admin: 10/04/17 20:04 Dose: 125 ml Senna (Senna) 17.2 mg PO DAILY [facility] Last Admin: 10/05/17 11:58 Dose: 17.2 mg Sodium Chloride (Saline Flush) 10 ml FLUSH ONETIME ONE Stop: 10/04/17 19:51 Last Admin: 10/04/17 20:05 Dose: 10 ml Consult PN Assessment/Plan (1) Pneumonia SNOMED Code(s): 849811778 Code(s): J18.9 - PNEUMONIA, UNSPECIFIED ORGANISM Current Visit: Yes Qualifiers: Pneumonia type: due to unspecified organism Laterality: bilateral Lung location: lower lobe of lung Qualified Code(s): J18.9 - Pneumonia, unspecified organism (2) Status post appendectomy SNOMED Code(s): 560869638, 215703923 Code(s): Z90.49 - ACQUIRED ABSENCE OF OTHER SPECIFIED PARTS OF DIGESTIVE TRACT Current Visit: Yes Assessment:: imp: Constipation resolved. His abdomen is benign. Problem List Initiated/Reviewed/Updated: Yes Plan: Signing off. Patient can be discharged to follow-up with the operating surgeon post appendectomy.
--- NOTE | 2017-10-06 09:49 | PCM.PN ---
- General Info Date of Service: 10/06/17 Functional Status: Reports: Pain Controlled, Tolerating Diet, Ambulating, Urinating, Incentive Spirometry - Review of Systems General: Reports: No Symptoms HEENT: Reports: No Symptoms Pulmonary: Reports: No Symptoms Cardiovascular: Reports: No Symptoms Gastrointestinal: Reports: No Symptoms Genitourinary: Reports: No Symptoms Musculoskeletal: Reports: No Symptoms Skin: Reports: No Symptoms Neurological: Reports: No Symptoms Psychiatric: Reports: No Symptoms - Patient Data Vitals - Most Recent: Last Vital Signs Temp 36.8 C 10/06/17 07:55 Pulse 57 L 10/06/17 07:55 Resp 16 10/06/17 07:55 BP 125/78 10/06/17 07:55 Pulse Ox 99 10/06/17 07:55 Weight - Most Recent: 103.963 kg I&O - Last 24 Hours: Intake & Output 10/05/17 10/06/17 10/06/17 22:59 06:59 14:59 Intake Total 2450 2748 Output Total 1520 1175 Balance 930 1573 Med Orders - Current: Current Medications Hydrocodone Bitart/Acetaminophen ([place] 325-5 Mg) 1 tab PO Q6H PRN PRN Reason: Pain Bisacodyl (Dulcolax) 5 mg PO BEDTIME PRN PRN Reason: Constipation Enoxaparin Sodium (Lovenox) 40 mg SUBCUT DAILY [facility] Last Admin: 10/06/17 08:39 Dose: 40 mg Sodium Chloride (Normal Saline) 1,000 mls @ 150 mls/hr IV ASDIRECTED COUNT INCLUDES [facility] Last Admin: 10/06/17 06:37 Dose: 150 mls/hr Levofloxacin/Dextrose 750 mg/ (Premix) 150 mls @ 100 mls/hr IV Q24H [facility]CLUDES [facility] Last Admin: 10/05/17 21:37 Dose: 100 mls/hr Piperacillin Sod/Tazobactam (Sod 4.5 gm/ Sodium Chloride) 100 mls @ 25 mls/hr IV Q8H COUNT [facility]CLUDES [facility] Last Admin: 10/06/17 08:42 Dose: 25 mls/hr Morphine Sulfate (Morphine) 1 mg IVPUSH Q8H PRN PRN Reason: Pain Ondansetron HCl (Zofran) 4 mg IVPUSH Q8H PRN PRN Reason: Nausea Temazepam (Restoril) 15 mg PO BEDTIME PRN PRN Reason: Sleep Discontinued Medications Sodium Chloride (Normal Saline) 1,000 mls @ 1,000 mls/hr IV ASDIRECTED COUNT INCLUDES THE [facility] Last Admin: 10/04/17 19:37 Dose: 1,000 mls/hr Ceftriaxone Sodium 1 gm/ (Sodium Chloride) 100 mls @ 200 mls/hr IV ONETIME ONE Stop: 10/04/17 22:05 Last Admin: 10/04/17 21:44 Dose: 200 mls/hr Levofloxacin/Dextrose 750 mg/ (Premix) 150 mls @ 100 mls/hr IV ONETIME ONE Stop: 10/04/17 23:42 Last Admin: 10/04/17 22:27 Dose: 100 mls/hr Sodium Chloride (Normal Saline) 1,000 mls @ 500 mls/hr IV ASDIRECTED COUNT INCLUDES THE [facility] Last Admin: 10/04/17 22:26 Dose: 500 mls/hr Sodium Chloride (Normal Saline) 500 mls @ 999 mls/hr IV .BOLUS ONE Stop: 10/05/17 00:31 Last Admin: 10/04/17 23:30 Dose: 999 mls/hr Piperacillin Sod/Tazobactam (Sod 4.5 gm/ Sodium Chloride) 100 mls @ 200 mls/hr IV ONETIME ONE Stop: 10/05/17 09:59 Last Admin: 10/05/17 09:51 Dose: 200 mls/hr Sodium Chloride (Normal Saline) Confirm Administered Dose 100 mls @ as directed .ROUTE .STK-MED ONE Stop: 10/06/17 01:32 Last Admin: 10/06/17 01:39 Dose: Not Given Iopamidol (Isovue-300 (61%)) 125 ml IVPUSH ONETIME ONE Stop: 10/04/17 19:51 Last Admin: 10/04/17 20:04 Dose: 125 ml Ketorolac Tromethamine (Toradol) 15 mg IVPUSH Q8H COUNT INCLUDES THE [facility] Stop: 10/06/17 09:31 Last Admin: 10/06/17 08:42 Dose: Not Given Senna (Senna) 17.2 mg PO DAILY [facility]CLUD[facility] Last Admin: 10/05/17 11:58 Dose: 17.2 mg Sodium Chloride (Saline Flush) 10 ml FLUSH ONETIME ONE Stop: 10/04/17 19:51 Last Admin: 10/04/17 20:05 Dose: 10 ml - Exam Quality Assessment: Supplemental Oxygen, DVT Prophylaxis General: Alert, Oriented, Cooperative, No Acute Distress HEENT: Pupils Equal, Pupils Reactive, EOMI Neck: Trachea Midline, No JVD Lungs: Normal Respiratory Effort Cardiovascular: Regular Rate, Regular Rhythm GI/Abdominal Exam: Normal Bowel Sounds, Soft, Non-Tender, No Organomegaly, No Distention (Male) Exam: Deferred Back Exam: Normal Inspection Extremities: Normal Inspection, Normal Range of Motion, Non-Tender, No Pedal Edema Skin: Warm Neurological: No New Focal Deficit, Normal Gait, Normal Speech Psy/Mental Status: Alert, Normal Affect, Normal Mood - Problem List Review Problem List Initiated/Reviewed/Updated: Yes - My Orders Last 24 Hours: My Active Orders 10/05/17 09:09 IS (RT) [RT Incentive Spirometry] [RC] ASDIRECTED 10/05/17 10:30 Enoxaparin [Lovenox] 40 mg SUBCUT DAILY 10/05/17 17:30 Piperacillin/Tazobactam [Zosyn] 4.5 gm Sodium Chloride 0.9% [Normal Saline] 100 ml IV Q8H 10/05/17 19:15 Bisacodyl [Dulcolax] 5 mg PO BEDTIME PRN 10/05/17 21:00 Levofloxacin/Dextrose 5%-Water [Levaquin in D5W 750 MG/150 ML] 750 mg Premix Bag 1 bag IV Q24H 10/06/17 11:00 CBC WITH AUTO DIFF [HEME] Routine CMP [COMPREHENSIVE METABOLIC PN,CMP] [CHEM] Routine LACTIC ACID [CHEM] Routine LIPASE [CHEM] Routine MAGNESIUM [CHEM] Routine 10/06/17 Breakfast Regular Diet [DIET] 10/07/17 08:00 CXR [Chest 2V] [CR] Routine 10/07/17 11:00 CRP [C-REACTIVE PROTEIN] [CHEM] Routine - Plan Plan:: Impression: POD 2, s/p appendectomy Had been provided an Augmentin prescription Aspiration PNA, RLL infiltrate Plan: IV ATB: Levoquin/Zosyn IVF IV Antiemetic Gen surg consult Daily labs Home meds DVT/GI prophylaxis Consult PT/OT/CM
--- NOTE | 2017-10-06 17:47 | CT ---
CT abdomen and pelvis Technique: Multiple axial sections were obtained from above the dome of the diaphragm inferiorly through the pubic symphysis. Intravenous and oral contrast has been given. Delayed images were also obtained from the mid kidneys inferiorly through the pubic symphysis. Comparison: No prior abdominal imaging. Findings: Small right sided pleural effusion is noted. Increased density within the right lung base which may represent atelectasis as well as pneumonia. Fatty infiltration is noted within the liver. Spleen appears within normal limits. Adrenal glands show no nodule. Pancreas is within normal limits. Gallbladder contains no calcified gallstones. Kidneys show symmetric contrast enhancement. Delayed images show contrast excretion into nondilated ureters with contrast seen within the bladder. Aorta shows no aneurysmal dilatation. No retroperitoneal adenopathy or mesenteric abnormalities are seen. Small amount of soft tissue air and increased density is noted within the subcutaneous fat within the lower left anterior abdominal wall presumably from previous surgery. Small amount of soft tissue air is also noted near the umbilicus within the subcutaneous fat also felt compatible with previous surgery. Surgical material is seen off the inferior tip of the cecum compatible with previous appendectomy. No pelvic mass or adenopathy is seen. No fluid collections of abscess are seen. Bowel gas pattern appears normal. Bone window settings were reviewed which appear within normal limits for the patient's age. Impression: 1. Subcutaneous air within the anterior abdominal wall as noted above likely from prior surgery. 2. Small right sided pleural effusion. Parenchymal density within right lung base most likely due to atelectasis although difficult to exclude pneumonia. 3. Fatty infiltration within the liver. 4. No intra-abdominal or intrapelvic abscess is seen. Diagnostic code #3 Agree with preliminary report issued by [facility] ([facility] preliminary report dictated on 10/04/17, 10:01 PM Central Time)
--- NOTE | 2017-10-06 17:47 | CR ---
Chest: Two views of the chest were obtained. Comparison: No prior study. Increased density within the right upper lung is seen. Left lung is clear. Heart size and mediastinum are normal. Bony structures are unremarkable. Impression: 1. Increased density within the right upper lung most likely representing pneumonia. Diagnostic code #3
[2017-10-06] MEDS: Levofloxacin/Dextrose 5%-Water 750 MG in Premix Bag 1 BAG IV SCH (21:27)
[2017-10-07] MEDS: Piperacillin/Tazobactam 4.5 GM in Sodium Chloride 0.9% 100 ML IV SCH ×2 (02:15→08:30)
--- NOTE | 2017-10-07 06:52 | PCM.DCSUM1 ---
Discharge Summary - Hospital Course HPI Initial Comments: 37 year old male without significant PMH is s/p appendectomy, POD 1. He went home after the OP procedure and developed a fever with chills. He noted a sore throat post extubation. This was associated with a fever on the day that he was discharged. He notified the [facility] and was instructed to go to the ED in his home town. Thus he presented to [facility] ED, he has a RLL infiltarte. he will be admitted to DC oc for aspiration PNA. A general surg consult has been ordered. - Discharge Data Discharge Date: 10/07/17 (Admit Date: 10/04/17) Discharge Disposition: Home, Self-Care 01 Condition: Good - Discharge Diagnosis/Problem(s) (1) Pneumonia SNOMED Code(s): 052593097 ICD Code: J18.9 - PNEUMONIA, UNSPECIFIED ORGANISM Status: Acute Priority : High Current Visit: Yes Qualifiers: Pneumonia type: due to unspecified organism Laterality: right Lung location: upper lobe of lung Qualified Code(s): J18.1 - Lobar pneumonia, unspecified organism (2) Status post appendectomy SNOMED Code(s): 719460022, 910893621 ICD Code: Z90.49 - ACQUIRED ABSENCE OF OTHER SPECIFIED PARTS OF DIGESTIVE TRACT Status: Acute Priority: High Current Visit: Yes (3) Obesity (BMI 30-39.9) SNOMED Code(s): 048314523 ICD Code: E66.9 - OBESITY, UNSPECIFIED Status: Chronic Priority: Medium Current Visit: Yes - Patient Summary/Data Consults: Consultations 10/04/17 23:26 Consult to Physician [CONS] Routine Labs Pending at D/C: none Recommended Follow-up Testing/Procedures: Follow-up with PCP within 7-10 days of discharge. Follow-up with surgeon as scheduled. Hospital Course: Impression: POD 2, s/p appendectomy Had been provided an Augmentin prescription Aspiration PNA, RLL infiltrate Plan: IV ATB: Levoquin/Zosyn IVF IV Antiemetic Gen surg consult Daily labs Home meds DVT/GI prophylaxis Overall Deyvi responded very well to treatment. General surgery was consulted and signed off on the patient. His recommendations were to follow-up with surgeon who preformed the procedure at the prior scheduled appointment. IV zosyn was discontinued and he will be discharged home on oral Levaquin. His WBC and CRP have improved. Chest x-ray improved Her medically. He should follow-up with a PCP in 7-10 days post discharge. Nursing is scheduling pt. with Dr. Arita here at our clinic to establish care. - Patient Instructions Diet: Heart Healthy Diet Activity: As Tolerated Notify Provider of: Fever, Increased Pain, Nausea and/or Vomiting - Discharge Plan Prescriptions/Med Rec: Levofloxacin [Levaquin] 750 mg PO DAILY #11 tab Home Medications: Home Meds Acetaminophen/oxyCODONE [Percocet 325-5 MG] 1 each PO Q4HR PRN 10/04/17 [History ] Levofloxacin [Levaquin] 750 mg PO DAILY #11 tab 10/07/17 [Rx] - Discharge Summary/Plan Comment DC Time >30 min.: Yes (40 minutes ) - General Info Date of Service: 10/07/17 Admission Dx/Problem (Free Text: Admission Diagnosis/Problem Admission Diagnosis/Problem Pneumonia Functional Status: Reports: Pain Controlled, Tolerating Diet, Ambulating, Urinating, Incentive Spirometry. Denies: New Symptoms - Review of Systems General: Reports: No Symptoms HEENT: Reports: No Symptoms Pulmonary: Reports: No Symptoms Cardiovascular: Reports: No Symptoms Gastrointestinal: Reports: No Symptoms Genitourinary: Reports: No Symptoms Musculoskeletal: Reports: No Symptoms Skin: Reports: No Symptoms Neurological: Reports: No Symptoms Psychiatric: Reports: No Symptoms - Patient Data Vitals - Most Recent: Last Vital Signs Temp 97.9 F 10/07/17 02:22 Pulse 67 10/07/17 02:22 Resp 16 10/07/17 02:22 BP 121/76 10/07/17 02:22 Pulse Ox 99 10/07/17 02:22 Weight - Most Recent: 222 lb 9.6 oz I&O - Last 24 hours: Intake & Output 10/06/17 10/06/17 10/07/17 14:59 22:59 06:59 Intake Total 1464 350 Output Total 4050 1300 Balance -2586 -950 Lab Results - Last 24 hrs: Laboratory Results - last 24 hr 10/06/17 10/06/17 10/06/17 Range/Units 10:58 10:58 10:58 WBC 8.42 (4.23-9.07) K/mm3 RBC 5.08 (4.63-6.08) M/mm3 Hgb 14.8 (13.7-17.5) gm/L Hct 41.6 (40.1-51.0) % MCV 81.9 (79.0-92.2) fl MCH 29.1 (25.7-32.2) pg MCHC 35.6 H (32.2-35.5) g/dl RDW Std Deviation 36.7 (35.1-43.9) fL Plt Count 197 (163-337) K/mm3 MPV 11.6 (9.4-12.3) fl Neut % (Auto) 68.3 H (34.0-67.9) % Lymph % (Auto) 20.9 L (21.8-53.1) % [place] % (Auto) 8.0 (5.3-12.2) % Eos % (Auto) 1.9 (0.8-7.0) Baso % (Auto) 0.4 (0.1-1.2) % Neut # (Auto) 5.76 H (1.78-5.38) K/mm3 Lymph # (Auto) 1.76 (1.32-3.57) K/mm3 [place] # (Auto) 0.67 (0.30-0.82) K/mm3 Eos # (Auto) 0.16 (0.04-0.54) K/mm3 Baso # (Auto) 0.03 (0.01-0.08) K/mm3 Sodium 138 (136-145) mEq/L Potassium 3.8 (3.5-5.1) mEq/L Chloride 103 (98-107) mEq/L Carbon Dioxide 23 (21-32) mEq/L Anion Gap 15.8 H (5-15) BUN 12 (7-18) mg/dL Creatinine 1.2 (0.7-1.3) mg/dL Est Cr Clr Drug Dosing 80.33 mL/min Estimated GFR (MDRD) > 60 (>60) mL/min BUN/Creatinine Ratio 10.0 L (14-18) Glucose 89 (74-106) mg/dL Lactic Acid 1.1 (0.4-2.0) mmol/L Calcium 8.9 (8.5-10.1) mg/dL Magnesium 1.9 (1.8-2.4) mg/dl Total Bilirubin 1.1 H (0.2-1.0) mg/dL AST 23 (15-37) U/L ALT 50 (16-63) U/L Alkaline Phosphatase 51 (46-116) U/L Total Protein 7.4 (6.4-8.2) g/dl Albumin 3.5 (3.4-5.0) g/dl Globulin 3.9 gm/dL Albumin/Globulin Ratio 0.9 L (1-2) Lipase 72 L (73-393) U/L Med Orders - Current: Current Medications Hydrocodone Bitart/Acetaminophen ([place] 325-5 Mg) 1 tab PO Q6H PRN PRN Reason: Pain Bisacodyl (Dulcolax) 5 mg PO BEDTIME PRN PRN Reason: Constipation Enoxaparin Sodium (Lovenox) 40 mg SUBCUT DAILY [facility] Last Admin: 10/06/17 08:39 Dose: 40 mg Sodium Chloride (Normal Saline) 1,000 mls @ 150 mls/hr IV ASDIRECTED [facility] Last Admin: 10/06/17 06:37 Dose: 150 mls/hr Levofloxacin/Dextrose 750 mg/ (Premix) 150 mls @ 100 mls/hr IV Q24H [facility] Last Admin: 10/06/17 21:27 Dose: 100 mls/hr Piperacillin Sod/Tazobactam (Sod 4.5 gm/ Sodium Chloride) 100 mls @ 25 mls/hr IV Q8H [facility] Last Admin: 10/07/17 02:15 Dose: 25 mls/hr Morphine Sulfate (Morphine) 1 mg IVPUSH Q8H PRN PRN Reason: Pain Ondansetron HCl (Zofran) 4 mg IVPUSH Q8H PRN PRN Reason: Nausea Temazepam (Restoril) 15 mg PO BEDTIME PRN PRN Reason: Sleep Discontinued Medications Sodium Chloride (Normal Saline) 1,000 mls @ 1,000 mls/hr IV ASDIRECTED [facility] Last Admin: 10/04/17 19:37 Dose: 1,000 mls/hr Ceftriaxone Sodium 1 gm/ (Sodium Chloride) 100 mls @ 200 mls/hr IV ONETIME ONE Stop: 10/04/17 22:05 Last Admin: 10/04/17 21:44 Dose: 200 mls/hr Levofloxacin/Dextrose 750 mg/ (Premix) 150 mls @ 100 mls/hr IV ONETIME ONE Stop: 10/04/17 23:42 Last Admin: 10/04/17 22:27 Dose: 100 mls/hr Sodium Chloride (Normal Saline) 1,000 mls @ 500 mls/hr IV ASDIRECTED [facility] Last Admin: 10/04/17 22:26 Dose: 500 mls/hr Sodium Chloride (Normal Saline) 500 mls @ 999 mls/hr IV .BOLUS ONE Stop: 10/05/17 00:31 Last Admin: 10/04/17 23:30 Dose: 999 mls/hr Piperacillin Sod/Tazobactam (Sod 4.5 gm/ Sodium Chloride) 100 mls @ 200 mls/hr IV ONETIME ONE Stop: 10/05/17 09:59 Last Admin: 10/05/17 09:51 Dose: 200 mls/hr Sodium Chloride (Normal Saline) Confirm Administered Dose 100 mls @ as directed .ROUTE .STK-MED ONE Stop: 10/06/17 01:32 Last Admin: 10/06/17 01:39 Dose: Not Given Iopamidol (Isovue-300 (61%)) 125 ml IVPUSH ONETIME ONE Stop: 10/04/17 19:51 Last Admin: 10/04/17 20:04 Dose: 125 ml Ketorolac Tromethamine (Toradol) 15 mg IVPUSH Q8H [facility] Stop: 10/06/17 09:31 Last Admin: 10/06/17 08:42 Dose: Not Given Senna (Senna) 17.2 mg PO DAILY [facility] Last Admin: 10/05/17 11:58 Dose: 17.2 mg Sodium Chloride (Saline Flush) 10 ml FLUSH ONETIME ONE Stop: 10/04/17 19:51 Last Admin: 10/04/17 20:05 Dose: 10 ml - Exam Quality Assessment: Reports: DVT Prophylaxis General: Reports: Alert, Oriented, Cooperative, No Acute Distress HEENT: Reports: Pupils Equal, Pupils Reactive, EOMI, Mucous Membr. Moist/[place] Neck: Reports: Supple, Trachea Midline, No JVD Lungs: Reports: Clear to Auscultation, Normal Respiratory Effort Cardiovascular: Reports: Regular Rate, Regular Rhythm GI/Abdominal Exam: Normal Bowel Sounds, Soft, Non-Tender, No Organomegaly, No Distention, No Abnormal Bruit, No Mass, Pelvis Stable (Male) Exam: Deferred Rectal (Males) Exam: Deferred Back Exam: Reports: Normal Inspection, Full Range of Motion Extremities: Normal Inspection, Normal Range of Motion, Non-Tender, No Pedal Edema, Normal Capillary Refill Skin: Reports: Warm, Dry, Intact Wound/Incisions: Reports: Healing Well Neurological: Reports: No New Focal Deficit Psy/Mental Status: Reports: Alert, Normal Affect, Normal Mood *Q Meaningful Use (DIS) - VTE *Q VTE Criteria *Q: - Stroke *Q Stroke Criteria *Q: - AMI *Q AMI Criteria *Q:
[2017-10-07] MEDS: Enoxaparin 40 MG/0.4 ML Syringe SUBCUT SCH (08:17)
--- NOTE | 2017-10-07 10:06 | CR ---
Chest: Two views of the chest were obtained. Comparison: Prior chest x-ray of 10/05/17. Chest appears improved from previous exam. Lungs are currently clear. Bony structures are unremarkable. Heart size and mediastinum are normal. Impression: 1. Significant improvement of chest x-ray from previous study with lungs currently appearing clear. Diagnostic code #1
== END 2017-10-07 11:39 | disposition home or self-care (01) | DRG 137 ==
LOC: JD.ED 18:21 → JD.MS 22:37
PROVIDERS: ADMIT Internal Medicine Cardiovascular Disease; ATTEND Internal Medicine Cardiovascular Disease
DX: J69.0 Pneumonitis due to inhalation of food and vomit (principal); Z90.49 Acquired absence of other specified parts of digestive tract; E66.9 Obesity, unspecified
CPT/HCPCS: 36415; 71046; 71046-26; 74177; 74177-26; 80048; 80053; 81001; 83605; 83690; 83735; 85025; 86140; 87040; 87081; 87430; 87804; 96361; 96365; 96367; 99285; 99285-25; A9270-GY; J0696; J1650; J1885; J1956; J2543; J7030; J7040; J7050; Q9967

== ENCOUNTER 2021-05-20 15:22 | Emergency (ER) | payer BC ==
[2021-05-20] MEDS ORDERED: Sodium Chloride 0.9% 10 ML Syringe FLUSH PRN (17:26)
--- NOTE | 2021-05-20 17:58 | CR ---
Chest: Frontal view of the chest was obtained. Comparison: Prior chest x-ray of 10/24/17. Patchy increased density is seen within both sides of the chest. These findings are an interval change from prior exam. Heart size and mediastinum are normal. Bony structures appear unremarkable for the patient's age. Impression: 1. Slight areas of increased density within both sides of the chest from prior chest x-ray. Findings most likely represent mild areas of COVID pneumonia. Diagnostic code #3
[2021-05-20] MEDS ORDERED: Ondansetron 4 MG/2 ML SDV IVPUSH ONE (18:32)
[2021-05-20] MEDS ORDERED: Sodium Chloride 0.9% 1,000 ML IV STA (18:32)
--- NOTE | 2021-05-20 20:04 | EDM.PDOC ---
ED HPI GENERAL MEDICAL PROBLEM - General Chief Complaint: Respiratory Problem Stated Complaint: COVID +/WORSENING SYMPTOMS Time Seen by Provider: 05/20/21 17:21 Source of Information: Reports: Patient, RN Notes Reviewed History Limitations: Reports: No Limitations - History of Present Illness INITIAL COMMENTS - FREE TEXT/NARRATIVE: Patient is a 41-year-old male presenting to the emergency department for evaluation of Covid symptoms. Reports he became ill and was tested positive last Saturday. He has had fever, chills, nausea, diarrhea, cough, shortness of breath. He is unable to eat anything without becoming nauseous. Denies any significant chest pain. He has not been monitoring his oxygen saturations at home as he has been able to locate a pulse oximeter. Patient denies any chronic underlying medical conditions. He has not taken any [id number] medications today. Patient reports that he was started on prednisone last week for treatment of what they thought was viral illness as he tested negative for Covid. He took this for only 3 days and stopped because it was upsetting his stomach. He has not received Covid vaccination. - Related Data Allergies Allergy/AdvReac Type Severity Reaction Status Date / Time No Known Allergies Allergy Verified 05/20/21 16:00 Home Meds: Home Meds Ondansetron [Zofran ODT] 4 mg PO Q6H PRN #10 tab.dis 05/20/21 [Rx] dexAMETHasone [Decadron] 6 mg PO DAILY #4 tablet 05/20/21 [Rx] predniSONE 40 mg PO BID 05/20/21 [History] Past Medical History Psychiatric History: Reports: Depression - Infectious Disease History Infectious Disease History: Reports: Novel Coronavirus - Past Surgical History HEENT Surgical History: Reports: Oral Surgery GI Surgical History: Reports: Appendectomy Other GI Surgeries/Procedures: 10/02/17 lap appy Social & Family History - Family History Family Medical History: No Pertinent Family History - Tobacco Use Tobacco Use Status *Q: Never Tobacco User Second Hand Smoke Exposure: No - Caffeine Use Caffeine Use: Reports: Soda Other Caffeine Use: 1-2 can mout[place] dew per day - Recreational Drug Use Recreational Drug Use: No ED ROS GENERAL - Review of Systems Review Of Systems: See Below Constitutional: Reports: Fever, Chills, Weakness, Fatigue, Decreased Appetite HEENT: Reports: No Symptoms Respiratory: Reports: Shortness of Breath, Cough Cardiovascular: Reports: Dyspnea on Exertion. Denies: Syncope Endocrine: Reports: No Symptoms GI/Abdominal: Reports: Diarrhea, Nausea. Denies: Abdominal Pain, Vomiting : Reports: No Symptoms Musculoskeletal: Reports: Other (Generalized body aches) Skin: Reports: No Symptoms Neurological: Reports: No Symptoms Psychiatric: Reports: No Symptoms Hematologic/Lymphatic: Reports: No Symptoms Immunologic: Reports: No Symptoms ED EXAM, GENERAL - Physical Exam Exam: See Below Exam Limited By: No Limitations General Appearance: Alert, WD/WN, No Apparent Distress Respiratory/Chest: No Respiratory Distress, Lungs Clear, No Accessory Muscle Us e, Chest Non-Tender, Decreased Breath Sounds Cardiovascular: Normal Peripheral Pulses, Regular Rate, Rhythm, No Edema, No Gallop, No JVD, No Murmur, No Rub GI/Abdominal: Normal Bowel Sounds, Soft, Non-Tender, No Organomegaly, No Distention, No Abnormal Bruit, No Mass Neurological: Alert, Oriented, CN II-XII Intact, Normal Cognition, Normal Gait, Normal Reflexes, No Motor/Sensory Deficits Psychiatric: Normal Affect, Normal Mood Skin Exam: Warm, Dry, Intact, Normal Color, No Rash Course - Vital Signs Last Recorded V/S: Last Vital Signs Temp 100.0 F 05/20/21 17:16 Pulse 112 H 05/20/21 17:16 Resp 22 H 05/20/21 17:16 BP 149/83 H 05/20/21 17:16 Pulse Ox 90 L 05/20/21 17:16 - Orders/Labs/Meds Orders: Active Orders 24 hr Category Date Time Status Peripheral IV Care [RC] . DIRECTED Care 05/20/21 17:26 Active Sodium Chloride 0.9% [Normal Saline] 1,000 ml Med 05/20/21 18:32 Active IV NOW Sodium Chloride 0.9% [Saline Flush] Med 05/20/21 17:26 Active 10 ml FLUSH ASDIRECTED PRN Peripheral IV Insertion Adult [OM.PC] Stat Oth 05/20/21 17:26 Ordered Medication Orders Sodium Chloride (Normal Saline) 1,000 mls @ 150 mls/hr IV NOW STA Stop: 05/21/21 01:11 Last Admin: 05/20/21 18:57 Dose: 150 mls/hr Documented by: FERMIN Sodium Chloride (Sodium Chloride 0.9% 10 Ml Syringe) 10 ml FLUSH ASDIRECTED PRN PRN Reason: Keep Vein Open Last Admin: 05/20/21 18:57 Dose: 10 ml Documented by: FERMIN Labs: Laboratory Tests 05/20/21 05/20/21 05/20/21 Range/Units 19:16 19:16 19:16 WBC 4.11 L (4.23-9.07) K/mm3 RBC 5.34 (4.63-6.08) M/mm3 Hgb 15.5 (13.7-17.5) gm/dl Hct 44.5 (40.1-51.0) % MCV 83.3 (79.0-92.2) fl MCH 29.0 (25.7-32.2) pg MCHC 34.8 (32.2-35.5) g/dl RDW Std Deviation 38.6 (35.1-43.9) fL Plt Count 155 L (163-337) K/mm3 MPV 11.1 (9.4-12.3) fl Neut % (Auto) 68.9 H (34.0-67.9) % Lymph % (Auto) 17.8 L (21.8-53.1) % [place] % (Auto) 12.7 H (5.3-12.2) % Eos % (Auto) 0.2 L (0.8-7.0) Baso % (Auto) 0.2 (0.1-1.2) % Neut # (Auto) 2.83 (1.78-5.38) K/mm3 Lymph # (Auto) 0.73 L (1.32-3.57) K/mm3 [place] # (Auto) 0.52 (0.30-0.82) K/mm3 Eos # (Auto) 0.01 L (0.04-0.54) K/mm3 Baso # (Auto) 0.01 (0.01-0.08) K/mm3 D-Dimer, Quantitative 0.68 H (0.19-0.50) mg/L Sodium 133 L (136-145) mEq/L Potassium 3.4 L (3.5-5.1) mEq/L Chloride 96 L (98-107) mEq/L Carbon Dioxide 26 (21-32) mEq/L Anion Gap 14.4 (5-15) BUN 16 (7-18) mg/dL Creatinine 1.4 H (0.7-1.3) mg/dL Est Cr Clr Drug Dosing 66.23 mL/min Estimated GFR (MDRD) 56 (>60) mL/min BUN/Creatinine Ratio 11.4 L (14-18) Glucose 106 H (70-99) mg/dL Calcium 8.5 (8.5-10.1) mg/dL Magnesium (1.8-2.4) mg/dL Total Bilirubin 0.8 (0.2-1.0) mg/dL AST 77 H (15-37) U/L ALT 90 H (16-63) U/L Alkaline Phosphatase 39 L (46-116) U/L Troponin I (0.00-0.056) ng/mL C-Reactive Protein 7.3 H* (<1.0) mg/dL Total Protein 7.6 (6.4-8.2) g/dl Albumin 3.5 (3.4-5.0) g/dl Globulin 4.1 gm/dL Albumin/Globulin Ratio 0.9 L (1-2) 05/20/ Range/Units 19:16 WBC (4.23-9.07) K/mm3 RBC (4.63-6.08) M/mm3 Hgb (13.7-17.5) gm/dl Hct (40.1-51.0) % MCV (79.0-92.2) fl MCH (25.7-32.2) pg MCHC (32.2-35.5) g/dl RDW Std Deviation (35.1-43.9) fL Plt Count (163-337) K/mm3 MPV (9.4-12.3) fl Neut % (Auto) (34.0-67.9) % Lymph % (Auto) (21.8-53.1) % [place] % (Auto) (5.3-12.2) % Eos % (Auto) (0.8-7.0) Baso % (Auto) (0.1-1.2) % Neut # (Auto) (1.78-5.38) K/mm3 Lymph # (Auto) (1.32-3.57) K/mm3 [place] # (Auto) (0.30-0.82) K/mm3 Eos # (Auto) (0.04-0.54) K/mm3 Baso # (Auto) (0.01-0.08) K/mm3 D-Dimer, Quantitative (0.19-0.50) mg/L Sodium (136-145) mEq/L Potassium (3.5-5.1) mEq/L Chloride (98-107) mEq/L Carbon Dioxide (21-32) mEq/L Anion Gap (5-15) BUN (7-18) mg/dL Creatinine (0.7-1.3) mg/dL Est Cr Clr Drug Dosing mL/min Estimated GFR (MDRD) (>60) mL/min BUN/Creatinine Ratio (14-18) Glucose (70-99) mg/dL Calcium (8.5-10.1) mg/dL Magnesium 2.1 (1.8-2.4) mg/dL Total Bilirubin (0.2-1.0) mg/dL AST (15-37) U/L ALT (16-63) U/L Alkaline Phosphatase (46-116) U/L Troponin I < 0.017 (0.00-0.056) ng/mL C-Reactive Protein (<1.0) mg/dL Total Protein (6.4-8.2) g/dl Albumin (3.4-5.0) g/dl Globulin gm/dL Albumin/Globulin Ratio (1-2) Meds: Medications Generic Name Dose Route Start Last Admin Trade Name Freq PRN Reason Stop Dose Admin Sodium Chloride 1,000 mls @ 150 mls/hr 05/20/21 18:32 05/20/21 18:57 Normal Saline IV 05/21/21 01:11 150 mls/hr NOW STA Administration Sodium Chloride 10 ml 05/20/21 17:26 05/20/21 18:57 Sodium Chloride 0.9% 10 Ml Syringe FLUSH 10 ml ASDIRECTED PRN Administration Keep Vein Open Discontinued Medications Generic Name Dose Route Start Last Admin Trade Name Freq PRN Reason Stop Dose Admin Ondansetron HCl 4 mg 05/20/21 18:32 05/20/21 18:57 Ondansetron 4 Mg/2 Ml Sdv IVPUSH 05/20/21 18:33 4 mg ONETIME ONE Administration - Re-Assessments/Exams Free Text/Narrative Re-Assessment/Exam: Patient is a 41-year-old male presenting to the emergency department for evalu ation of Covid symptoms. He reports he has been ill for approximately 7 days. Initial oxygen saturation in triage was 90% on room air, however he has come up to 93 to 94% on room air. He was slightly tachycardic at 112. Low-grade fever 100.0. On exam, lung sounds are clear but slightly diminished. Exam is otherwise unremarkable. I did discuss the option of treatment with Regeneron with him given his BMI, however he is hesitant to do this as he wants to get the Covid vaccination as soon as he can after illness. He will think about it and let me know if he decides to go through with treatment. He has had ongoing diarrhea, therefore I suspect he is likely slightly dehydrated. I have ordered normal saline at 150 mill per hour as well as Zofran 4 mg IV pending lab results. I have ordered blood work and chest x-ray. 05/20/21 20:27 Hematology significant for WBC is low at 4.11, D-dimer minimally elevated 0.68, sodium 133, potassium 3.4, chloride 96, creatinine 1.4, AST 77, ALT 90, alkaline phosphatase 39, CRP 7.3. Troponin is undetectably low. Chest x-ray shows slight area of increased density within both sides of the chest which most likely represents mild Covid pneumonia. Patient has decided not to received the Regeneron treatment. I will start him on dexamethasone 6 mg daily for 5 days. First dose to be given tonight. Also I will send a prescription for Zofran to help with nausea and recommend that he starts taking omeprazole. Recommend that he purchase a home pulse oximeter. He will check with the pharmacy tomorrow to see if they have it available. Discussed return precautions. Discharge instructions as documented. Departure - Departure Time of Disposition: 20:27 Disposition: Home, Self-Care 01 Condition: Good Clinical Impression: COVID-19 - Discharge Information *PRESCRIPTION DRUG MONITORING PROGRAM REVIEWED*: No *COPY OF PRESCRIPTION DRUG MONITORING REPORT IN PATIENT [place]: No Prescriptions: dexAMETHasone [Decadron] 6 mg PO DAILY #4 tablet Ondansetron [Zofran ODT] 4 mg PO Q6H PRN #10 tab.dis PRN Reason: Nausea/Vomiting Instructions: COVID-19 Referrals: PCP,None [Primary Care Provider] - Forms: ED Department Discharge Additional Instructions: You were seen in the emergency department today for evaluation of symptoms of COVID-19. Work included blood work, chest x-ray. Results of your blood work were overall normal considering her diagnosis of Covid. Chest x-ray showed some very mild Covid pneumonia. Your oxygen saturations were in the normal range while in the emergency department. While in the ER, you received IV fluids, Zofran for nausea, and your first dose of dexamethasone. Prescription for dexamethasone and Zofran has been sent to [facility]. Take these medications as prescribed. Recommend purchasing a home pulse oximeter as well as omeprazole for acid indigestion. Take the omeprazole daily. Monitor your oxygen saturations intermittently throughout the day. If you are maintaining an oxygen saturation below 90% and it does not come up or you experience any other new or worsening symptoms of concern, please not hesitate to return to the emergency department for reevaluation. Sepsis Event Note (ED) - Focused Exam Vital Signs: Vital Signs Temp Pulse Resp BP Pulse Ox 05/20/21 17:16 100.0 F 112 H 22 H 149/83 H 90 L - My Orders Last 24 Hours: My Active Orders 05/20/21 17:26 Peripheral IV Care [RC] . DIRECTED Sodium Chloride 0.9% [Saline Flush] 10 ml FLUSH ASDIRECTED PRN Peripheral IV Insertion Adult [OM.PC] Stat 05/20/21 18:32 Sodium Chloride 0.9% [Normal Saline] 1,000 ml IV NOW - Assessment/Plan Last 24 Hours: My Active Orders 05/20/21 17:26 Peripheral IV Care [RC] . DIRECTED Sodium Chloride 0.9% [Saline Flush] 10 ml FLUSH ASDIRECTED PRN Peripheral IV Insertion Adult [OM.PC] Stat 05/20/21 18:32 Sodium Chloride 0.9% [Normal Saline] 1,000 ml IV NOW
[2021-05-20] MEDS ORDERED: Dexamethasone 4 MG Tab PO ONE (20:27)
== END 2021-05-20 21:09 | disposition home or self-care (01) ==
LOC: JD.ED 15:22
DX: U07.1 COVID-19 (principal)
CPT/HCPCS: 36415; 71045; 80053; 83735; 84484; 85025; 85379; 86140; 96374; 99284; J2405; J7030; J8540